=== PATIENT | female | born 1930 | race Caucasian/White ===

== ENCOUNTER 2019-12-24 19:26 | Emergency (ER) | payer OTHER, MEDICARE ==
[2019-12-24] MEDS ORDERED: NA CHLORIDE 0.9% 500 ML ONE (20:06)
[2019-12-24 20:07] LABS: Absolute Lymphocytes (CBC) 0.7 K/uL (0.7-4.9); Basophils % 0.8 % (0-1.3); Lymphocytes % 8.4 % (15.3-44.8); MPV 7.5 fL (7.6-11.3); RBC Red Blood Cell Count 3.61 M/uL (3.86-4.86)
--- NOTE | 2019-12-24 20:23 | RAD REPORT ---
EXAM DESCRIPTION: CT - Head Brain Wo Cont - 12/24/2019 7:52 pm CLINICAL HISTORY: DIZZINESS, syncope COMPARISON: Head C Spine Mpr Wo Con dated 11/09/2016 TECHNIQUE: Axial 5 mm thick images of the head were obtained without IV contrast. All CT scans are performed using dose optimization technique as appropriate and may include automated exposure control or mA/KV adjustment according to patient size. FINDINGS: No intracranial hemorrhage, mass, edema or shift of mid-line structures. No acute infarcti on changes seen. Advanced atrophy and chronic ischemic changes are present. Ventricles are in proport ion to volume loss. Volume loss has shown progression from 2017. Mastoid air cells and visualized portions of the paranasal sinuses are clear. No acute bony findings. IMPRESSION: No hemorrhage, edema or acute intracranial finding. Advanced atrophy and chronic ischemic changes with ventricles in proportion. Atrophy has progressed since 2017.
--- NOTE | 2019-12-24 21:38 | EDPHYS ---
Physician Documentation [facility] Name: Colette Torres Age: 89 yrs Sex: Female : 1930 Arrival Date: 12/24/2019 Time: 19:34 Bed 2 Private MD: ED Physician Zack Blanco HPI: 12/23 19:53 This 89 yrs old Female presents to ER via EMS with complaints of Dizziness. rn 19:53 The patient presents with dizziness. Onset: The symptoms/episode began/occurred today. rn Modifying factors: The symptoms are alleviated by nothing, the symptoms are aggravated by nothing. Severity of symptoms: At their worst the symptoms were mild in the emergency department the symptoms have improved. The patient has experienced similar episodes in the past. The patient has not recently seen a physician. Reports dizziness, has had before, happened about 1 month ago, told sodium was low, takes sodium bicarbonate per report. Got dizzy tonight, no fall, reports was sitting, slid down to floor, no trauma. Reports dizziness now resolved, feels tired and sleepy but attributes that to her age. No recent illness, no cough/chest pain/sob/abd pain/vomiting/diarrhea. . Historical: - Allergies: 19:43 Losartan; wh 19:43 PENICILLINS; wh 19:43 Ramipril; wh - PMHx: 19:43 Hypertension; wh - Immunization history:: Adult Immunizations up to date. - Social history:: Smoking status: Patient/guardian denies using. - Family history:: not pertinent. - Hospitalizations: : No recent hospitalization is reported. ROS: 19:53 Constitutional: Negative for fever, chills, and weight loss, Eyes: Negative for injury, rn pain, redness, and discharge, Neck: Negative for injury, pain, and swelling, Cardiovascular: Negative for chest pain, palpitations, and edema, Respiratory: Negative for shortness of breath, cough, wheezing, and pleuritic chest pain, Abdomen/GI: Negative for abdominal pain, nausea, vomiting, diarrhea, and constipation, Back: Negative for injury and pain, MS/Extremity: Negative for injury and deformity, Skin: Negative for injury, rash, and discoloration, Neuro: Negative for headache, weakness, numbness, tingling, and seizure. Exam: 19:53 Constitutional: This is a well developed, well nourished patient who is awake, alert, rn and in no acute distress. Joking. Head/Face: Normocephalic, atraumatic. Eyes: Pupils equal round and reactive to light, EOMI, no nystagmus ENT: MMM Cardiovascular: Regular rate and rhythm. No pulse deficits. Respiratory: Spesking full sentences, unlabored. Abdomen/GI: soft, non-tender, no masses Skin: Warm, dry MS/ Extremity: Pulses equal, no cyanosis. Neurovascular intact. Full, normal range of motion. Equal circumference. Neuro: Awake and alert, GCS 15, oriented to person, place, time, and situation. Cranial nerves II-XII grossly intact. Motor strength 5/5 in all extremities. Sensory grossly intact. Cerebellar exam normal. Vital Signs: 19:40 BP 136 / 68; Pulse 87; Resp 18; Temp 98.3; Pulse Ox 100% ; Weight 63.5 kg; Height 5 ft. wh 5 in. (165.10 cm); 21:00 BP 127 / 74; Pulse 90; Resp 18; Pulse Ox 100% on R/A; wh 22:00 BP 140 / 71; Pulse 82; Resp 18; Pulse Ox 99% on R/A; wh 19:40 Body Mass Index 23.30 (63.50 kg, 165.10 cm) MDM: 19:39 Patient medically screened. rn 21:35 Differential diagnosis: generalized weakness, hypovolemia, idiopathic dizziness, rn electrolyte abnormality. . Data reviewed: vital signs, nurses notes, lab test result(s), EKG, radiologic studies, CT scan, and as a result, I will discharge patient. Counseling: I had a detailed discussion with the patient and/or guardian regarding: the historical points, exam findings, and any diagnostic results supporting the discharge/admit diagnosis, lab results, radiology results, the need for outpatient follow up, to return to the emergency department if symptoms worsen or persist or if there are any questions or concerns that arise at home. Response to treatment: the patient's symptoms have mildly improved after treatment, and as a result, I will discharge patient. Special discussion: I discussed with the patient/guardian in detail that at this point there is no indication for admission to the hospital. It is understood, however, that if the symptoms persist or worsen the patient needs to return immediately for re-evaluation. ED course: Pt back at baseline, mild low sodium and potassium, given here, stable vitals, normal neuro exam, will dc home with return precautions. . 12/23 19:40 Order name: Basic Metabolic Panel; Complete Time: 20:28 rn 12/23 19:40 Order name: CBC with Diff; Complete Time: 20:28 rn 12/23 19:40 Order name: CT Head Brain wo Cont; Complete Time: 20:28 rn 12/23 19:40 Order name: Magnesium; Complete Time: 20:28 rn 12/23 21:44 Order name: Urine Dipstick--Ancillary (enter results) tt3 12/23 19:40 Order name: EKG; Complete Time: 19:41 rn 12/23 19:40 Order name: Cardiac monitoring; Complete Time: 19:54 rn 12/23 19:40 Order name: EKG - Nurse/Tech; Complete Time: 20:12 rn 12/23 19:40 Order name: IV Saline Lock; Complete Time: 19:54 rn 12/23 19:40 Order name: Labs collected and sent; Complete Time: 19:54 rn 12/23 19:40 Order name: O2 Per Protocol; Complete Time: 19:54 rn 12/23 19:40 Order name: O2 Sat Monitoring; Complete Time: 19:54 rn 12/23 19:40 Order name: Urine Dipstick-Ancillary (obtain specimen); Complete Time: 21:42 rn Administered Medications: 20:14 Drug: NS 0.9% 500 ml Route: IV; Rate: bolus; Site: right antecubital; 21:42 Follow up: Response: No adverse reaction; IV Status: Completed infusion 20:35 Drug: Potassium Chloride 10 mEq Route: IV; Rate: calculated rate; Site: right antecubital; 21:42 Follow up: Response: No adverse reaction; IV Status: Completed infusion 21:50 Drug: Macrobid 100 mg Route: PO; 21:55 Follow up: Response: No adverse reaction Disposition: 12/24/19 21:37 Discharged to Home. Impression: Dizziness and giddiness, Hypokalemia, Hypo-osmolality and hyponatremia. - Condition is Stable. - Discharge Instructions: Dizziness, Hyponatremia, Urinary Tract Infection, Adult, Hypokalemia. - Prescriptions for Macrobid 100 mg Oral Capsule - take 1 capsule by ORAL route every 12 hours for 7 days; 14 capsule. - Medication Reconciliation Form, Thank You Letter, Antibiotic Education, Prescription Opioid Use form. - Follow up: Private Physician; When: As needed; Reason: Recheck today's complaints, Re-evaluation by your physician. - Problem is new. - Symptoms have improved. Signatures: Dispatcher [employer] EDSharla Mays RN RN bb Nieto, Roman, MD MD rn Habalo, Winsy Corrections: (The following items were deleted from the chart) 22:04 21:37 12/24/2019 21:37 Discharged to Home. Impression: Dizziness and giddiness; bb Hypokalemia; Hypo-osmolality and hyponatremia. Condition is Stable. Forms are Medication Reconciliation Form, Thank You Letter, Antibiotic Education, Prescription Opioid Use. Follow up: Private Physician; When: As needed; Reason: Recheck today's complaints, Re-evaluation by your physician. Problem is new. Symptoms have improved. rn
--- NOTE | 2019-12-24 21:38 | ER ---
Nurse's Notes [facility] Name: Colette Torres Age: 89 yrs Sex: Female : 1930 Arrival Date: 12/24/2019 Time: 19:34 Bed 2 Private MD: Diagnosis: Dizziness and giddiness;Hypokalemia;Hypo-osmolality and hyponatremia Presentation: 12/23 19:40 Chief complaint: EMS states: Pt from [place], felt dizzy while sitting down on a couch, tried standing up but slid down on the floor. Pt denies LOC, falling, hitting her head or any pain. Pt only complaint is dizziness. Per EMS this has happened once before and Pt was prescribed with Sodium Bicarb. Coronavirus screen: Client denies travel out of the [place] in the last 14 days. At this time, the client does not indicate any symptoms associated with coronavirus-19. Ebola Screen: Patient negative for fever greater than or equal to 101.5 degrees Fahrenheit, and additional compatible Ebola Virus Disease symptoms Patient denies exposure to infectious person. Initial Sepsis Screen: Does the patient meet any 2 criteria? No. Patient's initial sepsis screen is negative. Does the patient have a suspected source of infection? No. Patient's initial sepsis screen is negative. Risk Assessment: Do you want to hurt yourself or someone else? Patient reports no desire to harm self or others. Onset of symptoms was December 24, 2019. Care prior to arrival: Glucose check: 129. 19:40 Method Of Arrival: EMS: [facility] 19:40 Acuity: PAVEL 3 Historical: - Allergies: 19:43 Losartan; 19:43 PENICILLINS; 19:43 Ramipril; - PMHx: 19:43 Hypertension; wh - Immunization history:: Adult Immunizations up to date. - Social history:: Smoking status: Patient/guardian denies using. - Family history:: not pertinent. - Hospitalizations: : No recent hospitalization is reported. Screenin:43 Abuse screen: Denies threats or abuse. Denies injuries from another. Nutritional wh screening: No deficits noted. Tuberculosis screening: No symptoms or risk factors identified. Fall Risk Fall in past 12 months (25 points). Assessment: 19:43 General: Appears in no apparent distress. Behavior is calm, cooperative, appropriate wh for age. Pain: Denies pain. Neuro: Level of Consciousness is awake, alert, obeys commands, Oriented to person, place, time, situation, Appropriate for age. Cardiovascular: Capillary refill < 3 seconds. Respiratory: Airway is patent Respiratory effort is even, unlabored, Respiratory pattern is regular, symmetrical. GI: Abdomen is flat, non-distended. : No signs and/or symptoms were reported regarding the genitourinary system. EENT: No signs and/or symptoms were reported regarding the EENT system. Derm: Skin is intact, Skin is pink, warm \T\ dry. Musculoskeletal: Circulation, motion, and sensation intact. 21:00 Reassessment: Patient appears in no apparent distress at this time. No changes from previously documented assessment. Patient and/or family updated on plan of care and expected duration. Pain level reassessed. Patient is alert, oriented x 3, equal unlabored respirations, skin warm/dry/pink. 22:00 Reassessment: Patient appears in no apparent distress at this time. Patient and/or family updated on plan of care and expected duration. Pain level reassessed. Patient is alert, oriented x 3, equal unlabored respirations, skin warm/dry/pink. Vital Signs: 19:40 BP 136 / 68; Pulse 87; Resp 18; Temp 98.3; Pulse Ox 100% ; Weight 63.5 kg; Height 5 ft. 5 in. (165.10 cm); 21:00 BP 127 / 74; Pulse 90; Resp 18; Pulse Ox 100% on R/A; wh 22:00 BP 140 / 71; Pulse 82; Resp 18; Pulse Ox 99% on R/A; 19:40 Body Mass Index 23.30 (63.50 kg, 165.10 cm) ED Course: 19:34 Patient arrived in ED. cl3 19:39 Zack Blanco MD is Attending Physician. rn 19:40 Akua Montejo is Primary Nurse. 19:43 Triage completed. 19:44 Patient has correct armband on for positive identification. Placed in gown. Bed in low wh position. Call light in reach. Side rails up X 1. monitoring tech on. Pulse ox on. NIBP on. 19:44 Arm band placed on right wrist. 19:45 Inserted saline lock: 22 gauge in right antecubital area, using aseptic technique. ds4 Blood collected. 19:52 CT Head Brain wo Cont In Process Unspecified. EDMS 22:00 No provider procedures requiring assistance completed. Patient did not have IV access during this emergency room visit. Administered Medications: 20:14 Drug: NS 0.9% 500 ml Route: IV; Rate: bolus; Site: right antecubital; 21:42 Follow up: Response: No adverse reaction; IV Status: Completed infusion 20:35 Drug: Potassium Chloride 10 mEq Route: IV; Rate: calculated rate; Site: right antecubital; 21:42 Follow up: Response: No adverse reaction; IV Status: Completed infusion 21:50 Drug: Macrobid 100 mg Route: PO; 21:55 Follow up: Response: No adverse reaction Outcome: 21:37 Discharge ordered by . rn 22:00 Discharged to home via wheelchair, with family. 22:00 Condition: stable 22:00 Discharge instructions given to patient, family, Instructed on discharge instructions, follow up and referral plans. medication usage, POC Demonstrated understanding of instructions, follow-up care, medications, POC Prescriptions given X 1. 22:04 Patient left the ED. bb Signatures: Dispatcher [employer] EDMS Sharla Turpin RN RN bb Nieto, Roman, MD MD rn Swanson, Donovan ds4 Akua Montejo Charde cl3
[2019-12-24 21:52] LABS: Urine Blood TRACE (NEG); Urine Glucose NEGATIVE (NEG); Urine Protein NEGATIVE (NEG); Urine Specific Gravity 1.015 (1.005-1.030)
[2019-12-24 22:35] VITALS: BP 136/68; TEMP 98.3; O2SAT 100
--- NOTE | 2019-12-25 17:52 | EKG ---
Test Date: 2019-12-24 Test Time: 20:16:13 Underground Utility Locator: [employer] MEASUREMENT RESULTS: Intervals: Rate: 84 MI: 136 QRSD: 62 QT: 412 QTc: 486 [place]: P: 84 MI: 136 QRS: 68 T: 90 INTERPRETIVE STATEMENTS: Sinus rhythm with marked sinus arrhythmia Septal infarct, age undetermined Abnormal ECG Compared to ECG 11/10/2016 14:59:26 Myocardial infarct finding now present Electronically Signed On 12-25-19 17:50:07 CDT by Rony Shrestha
== END 2019-12-24 22:04 | disposition home or self-care (01) ==
LOC: ER 19:26
DX: E87.6 Hypokalemia (principal); E87.1 Hypo-osmolality and hyponatremia; I10 Essential (primary) hypertension; Z88.0 Allergy status to penicillin; Z88.8 Allergy status to other drugs, medicaments and biological substances
CPT/HCPCS: 96365; 93005; 85025; 80048; 36415; 83735; 81003; 70450; 99284; J7040